=== PATIENT | female | born 1975 | race Hispanic/Latino ===

== ENCOUNTER 2017-09-23 16:19 | Outpatient (CLI) | payer BC | END 2017-09-23 16:20 | disposition home or self-care (01) | LOC: BICRAD 16:19 | PROVIDERS: ATTEND Family Medicine | DX: R63.4 Abnormal weight loss (principal) | CPT/HCPCS: 71020 ==

== ENCOUNTER 2022-04-24 14:52 | Outpatient (CLI) | payer BC | END 2022-04-24 14:53 | disposition home or self-care (01) | LOC: BICMAMMO 14:52 | PROVIDERS: ATTEND Family Medicine | DX: Z12.31 Encounter for screening mammogram for malignant neoplasm of breast (principal) | CPT/HCPCS: 77063; 77067 ==

== ENCOUNTER 2023-07-20 13:41 | Outpatient (CLI) | payer BC | END 2023-07-20 13:42 | disposition home or self-care (01) | LOC: BICMAMMO 13:41 | PROVIDERS: ATTEND Family Medicine | DX: Z12.31 Encounter for screening mammogram for malignant neoplasm of breast (principal) | CPT/HCPCS: 77063; 77067 ==

== ENCOUNTER 2024-12-01 07:40 | Outpatient (CLI) | payer BC | END 2024-12-01 07:41 | disposition home or self-care (01) | LOC: BICMAMMO 07:40 | PROVIDERS: ATTEND Student in an Organized Health Care Education/Training Program | DX: N63.21 Unspecified lump in the left breast, upper outer quadrant (principal); N63.32 Unspecified lump in axillary tail of the left breast | CPT/HCPCS: G0279 ==